=== PATIENT | male | born 1970 | race Caucasian/White ===

== ENCOUNTER → 2020-01-27 | Outpatient (CLI) | payer BC, OTHER | LOC: SJCVCIMAG 08:17 | PROVIDERS: ATTEND Internal Medicine Cardiovascular Disease | DX: I25.10 Atherosclerotic heart disease of native coronary artery without angina pectoris (principal); R06.00 Dyspnea, unspecified; R53.83 Other fatigue; E78.5 Hyperlipidemia, unspecified; E66.9 Obesity, unspecified ==

== ENCOUNTER 2021-03-09 20:13 | Inpatient (IN) | payer BC, OTHER ==
[~2021-03-09] VITALS: Ht 185.4 cm; Wt 109.2 kg
[2021-03-09] MEDS ORDERED: ALPRAZOLAM XR3 MG PO (22:27)
[2021-03-09] MEDS ORDERED: CELEXA20 MG PO (22:28)
[2021-03-09] MEDS ORDERED: CRESTOR40 MG PO (22:29)
[2021-03-09 22:31] VITALS: BP 102/74
--- NOTE | 2021-03-09 22:34 | NUR ---
UPON ARRIVAL PT. IS HYPOXIC ON ROOM AIR OXYGEN SATS ARE 86%< HYPOXIA RESOLVED ONCE PLACE ON 7 LITERS NC NO CONCERNS RESTING IN BED
--- NOTE | 2021-03-10 02:01 | NUR ---
120CC URINE VIA URINAL
[2021-03-10 02:06] LABS: URINE BILIRUBIN NEGATIVE (Negative); URINE BLOOD 1+ (Negative); URINE CLARITY CLEAR; URINE COLOR YELLOW; URINE GLUCOSE-RANDOM* NEGATIVE (Negative); URINE KETONES 1+ (Negative); URINE LEUKOCYTES-REFLEX NEGATIVE (Negative); URINE NITRITE-REFLEX NEGATIVE (Negative); URINE PROTEIN (DIPSTICK) 2+ (Negative); URINE SPECIFIC GRAVITY >= 1.030 (1.005-1.035)
[2021-03-10 02:19] LABS: HEMATOCRIT 40.1 % (42.0-52.0); HEMOGLOBIN 13.4 gm/dL (14.0-18.0); MCH 28.8 pg (26.0-34.0); MCHC 33.3 g/dL (28.0-37.0); MCV 86.4 fL (80.0-100.0); RBC 4.65 mil/uL (4.50-6.00); RDW 14.3 % (10.5-14.5); WBC 4.6 thou/uL (4.0-11.0)
[2021-03-10 02:22] LABS: CALCIUM 7.7 mg/dL (8.5-10.1); CREATININE 0.9 mg/dL (0.7-1.3); POTASSIUM 3.5 mmol/L (3.5-5.1)
[2021-03-10 02:24] LABS: SQUAMOUS 0-3 Few /LPF (0-3); URINE WBC-REFLEX 0-5 Rare /HPF (0-5)
[2021-03-10 02:25] LABS: BACTERIA-REFLEX 1-9 Few /HPF (None Seen); CASTS None Seen /LPF (None Seen); CRYSTALS None Seen /LPF (None Seen); MUCUS 4-6 Moderate strn/LPF (None Seen); URINE RBC 3-10 Few /HPF (NONE SEEN)
[2021-03-10 02:28] LABS: ALBUMIN 2.4 g/dL (3.4-5.0); TOTAL BILIRUBIN 0.5 mg/dL (0.2-1.0)
[2021-03-10 22:58] VITALS: BP 111/76
[2021-03-10 23:25] VITALS: BP 115/81
[2021-03-11 03:57] LABS: ALBUMIN 2.3 g/dL (3.4-5.0); CALCIUM 8.2 mg/dL (8.5-10.1); CREATININE 0.9 mg/dL (0.7-1.3); DIRECT BILIRUBIN 0.2 mg/dL (<0.1-0.2); POTASSIUM 3.6 mmol/L (3.5-5.1); TOTAL BILIRUBIN 0.5 mg/dL (0.2-1.0); TOTAL PROTEIN 6.2 g/dL (6.4-8.2)
[2021-03-11 04:32] LABS: ABSOLUTE NEUTROPHILS 3.6 thou/uL (1.4-8.2); BASOPHILS 0.1 % (0.0-2.0); HEMATOCRIT 40.9 % (42.0-52.0); HEMOGLOBIN 13.6 gm/dL (14.0-18.0); LYMPHOCYTES 11.9 % (24.0-44.0); MCH 28.8 pg (26.0-34.0); MCHC 33.3 g/dL (28.0-37.0); MCV 86.4 fL (80.0-100.0); MONOCYTES 11.6 % (1.0-8.0); PLATELET COUNT 186 thou/uL (150-400); POLYS 76.4 % (36.0-66.0); RBC 4.74 mil/uL (4.50-6.00); RDW 14.9 % (10.5-14.5); WBC 4.7 thou/uL (4.0-11.0)
[2021-03-11 05:20] VITALS: BP 111/70
--- NOTE | 2021-03-11 06:38 | NUR ---
PT ARRIVED FROM ED AROUND 2330. PT HAS REMAINED ON OPTI FLOW AT 60L/75% OVERNIGHT SATING AROUND 90-92%. PT DENIES ANY FEELING OF OXYGEN HUNGER OR SOA. MILD IMPROVEMENT OF O2 SATS WITH PRONING AND SIDE LAYING. PT ENDORCES A HISTORY OF SLEEP APNEA BUT DOES NOT USE A CPAP. VSS. NO ACUTE EVENTS PT ENDORCES HAVING AN ADVANCED DIRECTIVE BUT ONE IS NOT AVAILABLE FOR OUR MEDICAL RECORDS. PT STATES THAT HE WOULD LIKE US TO INTERVENE IF HIS HEART STOPS BUT DOES NOT KNOW HOW HE FEELS ABOUT BEING INTUBATED IS NECESSARY. PT EDUCATED THAT UNTIL HE DECIDES HE WILL REMAIN A FULL CODE
[2021-03-11 07:43] VITALS: BP 107/69
--- NOTE | 2021-03-11 08:14 | HC ---
[facility] [place] [address] CONSULTATION Name: JUDI SIMMS Room #: 359-P ADM IN M.R.#: [id number] Admission: 03/09/21 Attend Phys: Elie Fisher MD Discharge: Date of : 70 Report #: [id number] THIS REPORT FOR: cc: Marco Mancini MD, Michael D. MD Barry, Joseph W. MD ~ DATE OF SERVICE: 03/10/2021 INFECTIOUS DISEASES CONSULTATION ATTENDING PHYSICIAN: Dr. Fisher. REASON FOR EVALUATION: COVID-19 infection, complicated by pneumonitis and respiratory failure with early ARDS. HISTORY OF PRESENT ILLNESS: Chart reviewed. The patient examined. This is a 50-year-old gentleman with history of liposarcoma, post-radiation, who had been ill for a number of days, had been hospitalized at an outside hospital but there was a delay in his care. He was inclined to leave [facility] and presented to the Emergency Room. He was confirmed to have COVID-19. Chest x-ray was negative for PE, although did show multifocal pneumonitis. Initial CBC showed a white count of 4.6, platelet count 146, elevated inflammatory markers as well. He was empirically placed on therapy with azithromycin, ceftriaxone, and continued on remdesivir and corticosteroids. ALLERGIES: None. CURRENT MEDICATIONS: Include Levaquin, atorvastatin, furosemide, enoxaparin, famotidine, citalopram, dexamethasone, zinc, ascorbic acid, cholecalciferol, budesonide, alprazolam, remdesivir, and enoxaparin. PAST MEDICAL HISTORY: Includes liposarcoma, status post radiation, hyperlipidemia, anxiety, and depression. SOCIAL HISTORY: Former smoker, occasional ethanol, no illicit drug use. FAMILY HISTORY: Noncontributory. REVIEW OF SYSTEMS: Otherwise, unremarkable. PHYSICAL EXAMINATION: GENERAL: He is lucid. He is in moderate distress. VITAL SIGNS: Temperature 98.4, pulse 87, respirations 20, blood pressure 105/63. SKIN: Warm, dry, no rashes. HEENT: Normocephalic. Extraocular muscles intact. Has Optiflow in place, [address] [facility] [address] [place] [address] CONSULTATION Name: JUDI SIMMS Room #: 359-P ADM IN M.R.#: [id number] Admission: 03/09/21 Attend Phys: Elie Fisher MD Discharge: Date of : 70 Report #: [id number] liters per minute, FiO2 of 62%. NECK: Supple. LUNGS: Right basilar crackles. HEART: Regular. I do not appreciate any murmur. ABDOMEN: Soft, although it is somewhat distended, nontender. EXTREMITIES: No cyanosis. GENITOURINARY AND RECTAL: Deferred. LABORATORY DATA: Procalcitonin 0.12. Sed rate 27. CRP 118.1. Electrolytes: Sodium 131, potassium 3.5, chloride 97, bicarbonate is 23, anion gap of 11, BUN and creatinine 17 and 0.9, glucose of 116. AST of 76, ALT of 56. Albumin 2.4, total protein 6.0. CBC: White count 4.6, H and H 13.4 and 40.1, platelets 146. Urinalysis otherwise unremarkable. ASSESSMENT PLAN: COVID-19 infection, complicated by pneumonitis, respiratory failure with early acute respiratory distress syndrome. Continue combination therapy with the remdesivir and additional corticosteroids. Treat empirically possible secondary bacterial pneumonitis with Levaquin. We will add baricitinib as well. He remains quite tenuous at this point. We will continue to monitor. He may well worsen before he improves. <ELECTRONICALLY SIGNED> By: Molina Murillo MD 03/11/21 0814 1342 99 Molina Murillo MD /nt
[2021-03-11 11:20] VITALS: BP 109/70
[2021-03-11 16:43] VITALS: BP 111/71
--- NOTE | 2021-03-11 16:43 | NUR ---
assumed care of pt at 0700. pt aox4. optiflow 40L. voicing no particular complaints. diuresing well. bottle of home anxiolytics from personal belongings bagged and stored in pharmacy. using urinal. calls out appropriately. wcm.
[2021-03-11 19:29] VITALS: BP 111/81
[2021-03-12 03:44] VITALS: BP 107/71
[2021-03-12 05:05] LABS: ABSOLUTE NEUTROPHILS 7.1 thou/uL (1.4-8.2); BASOPHILS 0.1 % (0.0-2.0); HEMATOCRIT 39.8 % (42.0-52.0); HEMOGLOBIN 13.5 gm/dL (14.0-18.0); LYMPHOCYTES 5.2 % (24.0-44.0); MCH 29.1 pg (26.0-34.0); MCV 85.4 fL (80.0-100.0); MONOCYTES 6.8 % (1.0-8.0); PLATELET COUNT 238 thou/uL (150-400); POLYS 87.9 % (36.0-66.0); RBC 4.65 mil/uL (4.50-6.00); RDW 14.7 % (10.5-14.5)
[2021-03-12 05:21] LABS: ALBUMIN 2.4 g/dL (3.4-5.0); DIRECT BILIRUBIN 0.2 mg/dL (<0.1-0.2); PHOSPHORUS 4.7 mg/dL (2.6-4.7); POTASSIUM 3.5 mmol/L (3.5-5.1); TOTAL BILIRUBIN 0.6 mg/dL (0.2-1.0)
[2021-03-12 08:53] VITALS: BP 105/68
[2021-03-12 11:29] VITALS: BP 118/74
[2021-03-12 15:16] VITALS: BP 108/74
[2021-03-12 19:27] VITALS: BP 112/75
[2021-03-13 04:44] VITALS: BP 96/67
[2021-03-13 06:49] LABS: ABSOLUTE NEUTROPHILS 5.6 thou/uL (1.4-8.2); BASOPHILS 0.6 % (0.0-2.0); HEMATOCRIT 41.8 % (42.0-52.0); HEMOGLOBIN 13.9 gm/dL (14.0-18.0); LYMPHOCYTES 7.8 % (24.0-44.0); MCH 28.6 pg (26.0-34.0); MCHC 33.2 g/dL (28.0-37.0); MCV 85.9 fL (80.0-100.0); MONOCYTES 10.6 % (1.0-8.0); PLATELET COUNT 282 thou/uL (150-400); RBC 4.86 mil/uL (4.50-6.00); RDW 14.8 % (10.5-14.5); WBC 6.9 thou/uL (4.0-11.0)
[2021-03-13 07:12] LABS: ALBUMIN 2.5 g/dL (3.4-5.0); CALCIUM 8.4 mg/dL (8.5-10.1); DIRECT BILIRUBIN 0.2 mg/dL (<0.1-0.2); PHOSPHORUS 4.8 mg/dL (2.6-4.7); POTASSIUM 3.5 mmol/L (3.5-5.1); TOTAL BILIRUBIN 0.8 mg/dL (0.2-1.0); TOTAL PROTEIN 6.3 g/dL (6.4-8.2)
[2021-03-13 07:34] VITALS: BP 105/69
--- NOTE | 2021-03-13 07:43 | NUR ---
Patient making slow progress towards outcome goals. Not much energy, does not talk much. Xanax helped improve patient's mood. Denies pain. Requires optiflow 60L/85% sats 92-93%. Needs encouragment to do IS 500 to 750 cc at best. Gait steady,
[2021-03-13 11:11] VITALS: BP 114/72
[2021-03-13 15:15] VITALS: BP 107/70
[2021-03-13 19:15] VITALS: BP 112/77
[2021-03-14 02:55] VITALS: BP 108/76
[2021-03-14 05:34] LABS: ABSOLUTE NEUTROPHILS 7.3 thou/uL (1.4-8.2); BASOPHILS 0.2 % (0.0-2.0); HEMATOCRIT 42.4 % (42.0-52.0); HEMOGLOBIN 14.1 gm/dL (14.0-18.0); LYMPHOCYTES 6.7 % (24.0-44.0); MCH 28.6 pg (26.0-34.0); MCHC 33.2 g/dL (28.0-37.0); MCV 86.3 fL (80.0-100.0); MONOCYTES 8.3 % (1.0-8.0); PLATELET COUNT 315 thou/uL (150-400); POLYS 84.8 % (36.0-66.0); RBC 4.91 mil/uL (4.50-6.00); RDW 14.5 % (10.5-14.5); WBC 8.6 thou/uL (4.0-11.0)
[2021-03-14 05:49] LABS: ALBUMIN 2.5 g/dL (3.4-5.0); CALCIUM 8.5 mg/dL (8.5-10.1); CREATININE 1.1 mg/dL (0.7-1.3); POTASSIUM 4.2 mmol/L (3.5-5.1); TOTAL BILIRUBIN 0.7 mg/dL (0.2-1.0); TOTAL PROTEIN 6.3 g/dL (6.4-8.2)
[2021-03-14 07:15] VITALS: BP 112/83
--- NOTE | 2021-03-14 07:53 | NUR ---
Patient making slowp rogress towards outcome goals. Oxygen unchanged 60L/86% saturation improved mid to high 90's. IS encouraged 500-750 m at best. Less anxious with Xanax. Vital signs and rhythm stable. Denies pain.
[2021-03-14 11:20] VITALS: BP 108/78
[2021-03-14 15:15] VITALS: BP 125/79
[2021-03-14 19:25] VITALS: BP 113/79
[2021-03-15 04:22] VITALS: BP 109/77
[2021-03-15 04:57] LABS: ABSOLUTE NEUTROPHILS 9.4 thou/uL (1.4-8.2); EOSINOPHILS 0.1 % (0.0-3.0); HEMATOCRIT 42.4 % (42.0-52.0); HEMOGLOBIN 14.3 gm/dL (14.0-18.0); LYMPHOCYTES 4.2 % (24.0-44.0); MCHC 33.8 g/dL (28.0-37.0); MONOCYTES 7.5 % (1.0-8.0); PLATELET COUNT 331 thou/uL (150-400); POLYS 88.2 % (36.0-66.0); RBC 4.94 mil/uL (4.50-6.00); RDW 14.8 % (10.5-14.5); WBC 10.7 thou/uL (4.0-11.0)
[2021-03-15 05:14] LABS: ALBUMIN 2.6 g/dL (3.4-5.0); CALCIUM 8.6 mg/dL (8.5-10.1); DIRECT BILIRUBIN 0.2 mg/dL (<0.1-0.2); PHOSPHORUS 4.6 mg/dL (2.5-4.9); TOTAL BILIRUBIN 0.8 mg/dL (0.2-1.0); TOTAL PROTEIN 6.5 g/dL (6.4-8.2)
[2021-03-15 07:32] VITALS: BP 116/71
[2021-03-15 11:13] VITALS: BP 104/72
--- NOTE | 2021-03-15 14:15 | NUR ---
INITIAL ASSESSMENT: SW reviewed chart and spoke with nursing and attending physician. Pt was admitted from home due to COVID. Pt has not received a COVID vaccination. Pt placed in Enhanced Isolation. Pt is afebrile and requiring optiflow. Pt is on IV steroids and IV lasix. SW spoke with pt via phone. Introduced role of SW. Pt is alert/orientated x 4. Pt reports he lives at home with his family. Prior to admission, pt was independent with ADLs. No use of DME. No hx of services or post-acute placement. Pt's PCP is Dr. Marco Mancini. Plan is for pt to discharge home when medically stable. SW is following to assist as needed with discharge planning.
[2021-03-15 15:46] VITALS: BP 108/70
[2021-03-15 20:58] VITALS: BP 107/94
[2021-03-16 04:06] VITALS: BP 102/76
[2021-03-16 05:05] LABS: ALBUMIN 2.6 g/dL (3.4-5.0); DIRECT BILIRUBIN 0.2 mg/dL (<0.1-0.2); TOTAL PROTEIN 6.7 g/dL (6.4-8.2)
[2021-03-16 07:28] VITALS: BP 115/87
--- NOTE | 2021-03-16 09:21 | NUR ---
Nutrition: pt admitted with COVID PNA. Seen for LOS. Unable to visit pt due to enhanced precautions room. Attempted phone call-no answer. PMH: liposarcoma S/P radiation, HLD, anxiety, depression. Variable weights this admit, BMI 33 obesity class 1. Eating fair--50-75% of meals on Heart healthy diet. On vitamin pack, steroid, lasix. Consider low nutrition risk at this time.
[2021-03-16 11:04] VITALS: BP 118/83
[2021-03-16 15:19] VITALS: BP 123/74
--- NOTE | 2021-03-16 18:39 | NUR ---
ASSUMED PATIENT CARE AT 0700. A/O X4. NO CHANGE ON THIS SFIFT. SLOWLY TOWARDS POC GOALS.
[2021-03-16 20:33] VITALS: BP 107/72
[2021-03-17 03:27] VITALS: BP 110/79
[2021-03-17 05:55] LABS: ALBUMIN 2.6 g/dL (3.4-5.0); CALCIUM 8.7 mg/dL (8.5-10.1); POTASSIUM 3.7 mmol/L (3.5-5.1); TOTAL BILIRUBIN 1.1 mg/dL (0.2-1.0); TOTAL PROTEIN 6.7 g/dL (6.4-8.2)
[2021-03-17 06:07] LABS: ALBUMIN 2.7 g/dL (3.4-5.0); DIRECT BILIRUBIN 0.2 mg/dL (<0.1-0.2); TOTAL PROTEIN 6.7 g/dL (6.4-8.2)
[2021-03-17 07:20] VITALS: BP 111/85
--- NOTE | 2021-03-17 14:43 | NUR ---
BELIA reviewed chart and spoke with nursing and attending physician. Pt remains in Enhanced Isolation due to COVID. Pt is afebrile and on optiflow. Pt is on IV steroids and IV lasix. Goal is to get pt off optiflow today if possible. Discharge home is anticipated in 1-2 days. Pt will most likely need home O2. BELIA placed call to pt's room. No answer. Will continue to call pt to discuss discharge plan. BELIA is following to assist as needed with discharge planning.
[2021-03-17 15:22] VITALS: BP 125/91
--- NOTE | 2021-03-17 18:41 | NUR ---
PATIENT OFF OPTIFLOW ON 4L/NC. UP AD IB. PROGRESSING TOWARDS POC GOALS.
[2021-03-17 19:55] VITALS: BP 117/77
--- NOTE | 2021-03-18 05:04 | NUR ---
PT IS PROGRESSING TOWARD GOAL OF DISCHARGE. PT A&OX4, ABLE TO COMMUNICATE WANTS AND NEEDS TO STAFF. ON 4L/NC THROUGHOUT THE NIGHT, TOLERATED WELL. NO C/O AT THIS TIME. VSS. WILL CONTINUE TO OBSERVE FOR CHANGES
[2021-03-18 05:26] VITALS: BP 104/76
[2021-03-18 07:12] VITALS: BP 110/79
--- NOTE | 2021-03-18 14:57 | NUR ---
BELIA reviewed chart and spoke with nursing and attending physician. Pt remains in Enhanced Isolation due to COVID. Pt is afebrile and on 4L of O2. Pt is on IV steroids. Discharge home is anticipated for tomorrow. Pt will need a rest/exercise oximetry to determine home O2 needs. BELIA spoke with pt via phone to discuss discharge plan. Pt is agreeable with plan. SW confirmed home address and phone number. Provided options for [employer]. No preference voiced. BELIA faxed home O2 referral to [facility]. Notified [facility] liaison. Will need testing and script for O2 faxed to [facility], if O2 is needed. Pt will have transportation home when discharged. BELIA is following and available to assist should needs arise. [facility], [place]--
[2021-03-18 16:02] VITALS: BP 111/81
--- NOTE | 2021-03-18 16:18 | NUR ---
ASSUMED CARE OF PT AT 0700. PT HAS BEEN RESTING QUIETLY THROUGHOUT SHIFT AND HAS NOT HAD ANY REQUESTS. ALL VITAL SIGNS ARE WNL. WILL CONTINUE TO MONITOR PT.
[2021-03-18 20:50] VITALS: BP 114/80
[2021-03-19 03:52] LABS: ALBUMIN 2.8 g/dL (3.4-5.0); CALCIUM 8.8 mg/dL (8.5-10.1); CREATININE 1.2 mg/dL (0.7-1.3); DIRECT BILIRUBIN 0.3 mg/dL (<0.1-0.2); POTASSIUM 4.3 mmol/L (3.5-5.1); TOTAL PROTEIN 6.4 g/dL (6.4-8.2)
[2021-03-19 03:55] VITALS: BP 113/80
[2021-03-19 04:19] VITALS: BP 113/80
--- NOTE | 2021-03-19 05:59 | NUR ---
PROGRESS PT A/O X4. LUNGS CLEAR BUT DIMINISHED ON 2 LITERS O2 VIA NC. VSS, UP AD ANA ROSA VOIDING QS. DENIES PAIN PLAN IS TO DC HOME AFTER OXIMETRY ACTIVITY TEST TODAY.
[2021-03-19 07:14] VITALS: BP 129/84
[2021-03-19] MEDS ORDERED: DEXAMETHASONE6 MG PO (11:25)
[2021-03-19] MEDS ORDERED: ASA81BEC PO (11:26)
[2021-03-19 12:07] VITALS: BP 129/84
== END 2021-03-19 13:37 | disposition home or self-care (01) | DRG 177 ==
LOC: ER 20:13 → EROBS 22:15 → 3W 22:15
PROVIDERS: Nurse Practitioner Family; Specialist; ADMIT Hospitalist; ATTEND Hospitalist
PROC: 5A0935A Assistance with Respiratory Ventilation, Less than 24 Consecutive Hours, High Flow/Velocity Cannula (ICD-10-PCS; principal; 2021-03-10)
PROC: XW033E5 Introduction of Remdesivir Anti-infective into Peripheral Vein, Percutaneous Approach, New Technology Group 5 (ICD-10-PCS; principal; 2021-03-10)
PROC: XW0DXM6 Introduction of Baricitinib into Mouth and Pharynx, External Approach, New Technology Group 6 (ICD-10-PCS; 2021-03-11)
PROC: 5A0935A Assistance with Respiratory Ventilation, Less than 24 Consecutive Hours, High Flow/Velocity Cannula (ICD-10-PCS; 2021-03-11)
PROC: 5A0945A Assistance with Respiratory Ventilation, 24-96 Consecutive Hours, High Flow/Velocity Cannula (ICD-10-PCS; 2021-03-12)
PROC: 5A0935A Assistance with Respiratory Ventilation, Less than 24 Consecutive Hours, High Flow/Velocity Cannula (ICD-10-PCS; 2021-03-15)
PROC: 5A0935A Assistance with Respiratory Ventilation, Less than 24 Consecutive Hours, High Flow/Velocity Cannula (ICD-10-PCS; 2021-03-16)
PROC: 5A0935A Assistance with Respiratory Ventilation, Less than 24 Consecutive Hours, High Flow/Velocity Cannula (ICD-10-PCS; 2021-03-17)
DX: U07.1 COVID-19 (principal); J12.82 Pneumonia due to coronavirus disease 2019; J80 Acute respiratory distress syndrome; R74.01 Elevation of levels of liver transaminase levels; E78.5 Hyperlipidemia, unspecified; K76.0 Fatty (change of) liver, not elsewhere classified; F41.9 Anxiety disorder, unspecified; E88.09 Other disorders of plasma-protein metabolism, not elsewhere classified; R73.9 Hyperglycemia, unspecified; F32.A Depression, unspecified; Z28.21 Immunization not carried out because of patient refusal; Z79.899 Other long term (current) drug therapy; Z92.3 Personal history of irradiation; Z87.891 Personal history of nicotine dependence; Z82.49 Family history of ischemic heart disease and other diseases of the circulatory system; Z85.89 Personal history of malignant neoplasm of other organs and systems
CPT/HCPCS: 10080; 10879